=== PATIENT | female | born 1995 | race Caucasian/White ===

== ENCOUNTER 2024-02-25 18:06 | Emergency (ER) | payer MEDICARE, SELFPAY ==
[2024-02-25 18:08] VITALS: BP 114/72
--- NOTE | 2024-02-25 19:26 | ED.GENMED ---
History of Present Illness
General
Chief Complaint: Fatigue
Source: patient
Exam Limitations: none
Time Seen by Provider: 02/25/24 19:11
History of Present Illness
History of Present Illness:
28-year-old female historically healthy except for anemia presents with ongoing severe fatigue for months. She had a very low hemoglobin in the past. Hemoglobin was 5. She was darted on oral iron. Last iron in October was 7. She moved back from
[place] has had difficulty getting into see a physician. Major complaint is ongoing fatigue over the last 2 or 3 nights she has had fevers up to 10 3 at night. She denies cough congestion pleuritic pain abdominal pain urinary symptoms vaginal
symptoms rash etc.
Past History
Past History
ED Past Medical History: Psychiatric (Generalized anxiety disorder)
Social History
Tobacco: Non-smoker
Alcohol: Occasional
Drug: None
Personal: Single
Living: with family (With mother)
Employment: Not employed
Family History
Family History: Other (Noncontributory)
Review of Systems
Review of Systems
All Other Systems: Not applicable
Constitutional: Reports fever and fatigue; Denies weight loss or chills
Respiratory: Reports no symptoms
Cardiac: Reports no symptoms
ABD/GI: Reports no symptoms
: Reports no symptoms
Phy Exam
Physical Exam
Physical Exam:
Physical Exam
General: no apparent distress, not acutely ill. No unusual adenopathy
Neck: supple. no meningeal signs. normal posterior pharynx
Heart: s1/s2 regular rate and rhythm, no murmur. equal radial pulses.
Lungs: no acute respiratory distress. clear bilaterally
Abdomen: normal bowel sounds. not tender. no CVAT
Neuro: alert and oriented. no focal neurological deficits
Skin: no rash
Psychiatric: well kept. interactive and cooperative
Extremities: no edema. no calf tenderness. negative homans. good distal pulses
Course
Orders/Labs/Results
Orders:
Orders
02/25/24 19:19
Test Result ONCE
CXR2 [CR Chest - 2 Views ] Urgent
Comment:
Reason For Exam: Fever/night sweats
02/25/24 19:39
COVID-19 Antigen Urgent
Source: Nasal Swab
Complete Blood Count/With Diff Urgent
Comprehensive Metabolic Panel Urgent
Ferritin Urgent
HCG, Serum Qualitative Screen Urgent
Iron Urgent
TIBC [Total Iron Binding] Urgent
TSH Reflex To Free T4 Urgent
02/25/24 19:40
Urinalysis Reflex To Culture Urgent
Date Specimen was Collected: 02/25/24
Time Specimen was Collected: 19:32
Abnormal Lab Results
02/25/24
19:39
MCH 32.3 H pg
(27.0-31.0)
MPV 10.5 H fL
(7.4-10.4)
02/25/24 19:39
02/25/24 19:39
Vital Signs
Initial and Last Documented VS:
Initial Vital Signs
Temp Pulse Resp BP Pulse Ox
98.4 F 55 16 114/72 100
02/25/24 18:08 02/25/24 18:08 02/25/24 18:08 02/25/24 18:08 02/25/24 18:08
Last Documented Vital Signs
Temp Pulse Resp BP Pulse Ox
98.4 F 55 16 101/65 99
02/25/24 18:08 02/25/24 21:00 02/25/24 18:08 02/25/24 21:00 02/25/24 21:00
MDM/Problems Addressed
Differential Diagnosis Includes:
Patient describing significant fatigue over months with a low hemoglobin. Likely iron deficiency although her menses have been nothing remarkable. She clinically is nontoxic in no distress. She has no unusual adenopathy. Question whether the
fever is part of this complex or whether the fever is a incidental issue. For this reason COVID urine to be checked. Her abdomen is benign. She has no clinical infectious issue found. Workup in progress
*Radiology
Radiology exam reviewed: radiology read reviewed (Negative)
*Pulse Oximetry
Patient hypoxic: no
*Critical Care Note
Total Time (30-74mins, 75-104mins- exclusive of procedures): Not Applicable
Update Note
Update Note:
Workup unremarkable. No serious explanation for patient's sleepiness at times. Benign exam. Entertain sleep apnea as a possibility. Stable for discharge to follow-up
ED Attending Note
-
Portions of this chart may have been created with voice recognition software.� Occasional wrong word or��sound alike� substitutions may have occurred due to the inherent limitations of voice recognition software.
Discharge Plan
Departure
Patient Disposition: Home (Routine Discharge)
Date of Disposition: 02/25/24
Time of Disposition: 22:24
Patient with high blood pressure during this ER visit?: No
Discharge Problem:
Recurring severe fatigue, Recent fever
Instructions: Fatigue (DC)
Prescriptions:
No Action
clonazepam 1 MG tablet
1 mg PO BID
fluoxetine 20 MG capsule
20 mg PO DAILY
rabies vacc,human diploid (PF) [Imovax Rabies Vaccine (PF)] 1 ML recon soln
1 ml IM PER PROTOCOL Qty: 3 0RF
buspirone 5 MG tablet
5 mg PO BID
rabies vacc,human diploid (PF) [Imovax Rabies Vaccine (PF)] 1 ML recon soln
1 ml IM PER PROTOCOL Qty: 1 0RF
Referrals:
[facility] [Outside] - Next open appointment
NONE,* [Family Provider] -
Lucho Hou MD [Active] - Next open appointment
Stand Alone Forms: Back to School
Activity Restrictions/Additional Instructions:
You should follow-up with the primary physician. 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
Also return with persistent fever or any other unusual infectious symptoms
Interventions
Interventions:
*Risk Screen - Suicide Last Done: 02/25/24 18:08
*General Assessment Last Done: 02/25/24 18:08
*Neglect/Abuse Screening Last Done: 02/25/24 18:08
ED- Fall Risk Assessment Last Done: 02/25/24 19:34
*ED COVID-19 Vaccine History Last Done: 02/25/24 18:08
Discharge Date and Time
Print Language: UKRAINIAN
[2024-02-25 19:38] VITALS: BP 120/69
[2024-02-25 19:45] LABS: Urine Albumin Negative (Neg - Trace); Urine Bilirubin Negative (Negative); Urine Character Clear (Clear); Urine Color Yellow; Urine Glucose Negative (Negative); Urine Ketone Negative (Negative); Urine Leukocyte Negative (Negative); Urine Nitrite Negative (Negative); Urine Occult Blood Negative (Negative); Urine Urobilinogen Negative (Neg - 1+)
[2024-02-25 19:46] LABS: % Basophils 0.8 % (0-2); % Eosinophils 0.9 % (0-6); % Immature Granulocytes 0.2 % (0-0.5); % Lymphocytes 33.4 % (20.5-51.1); % Neutrophils 56.7 % (42.2-75.2); Absolute Basophils 0.1 10^3/uL (0-0.2); Absolute Eosinophils 0.1 10^3/uL (0-0.7); Absolute Lymphocytes 2.2 10^3/uL (1.2-3.4); Absolute Monocytes 0.5 10^3/uL (0.1-0.6); Absolute Neutrophils 3.7 10^3/uL (1.4-6.5); Hematocrit 41.1 % (37.0-47.0); Hemoglobin 14.1 g/dL (12.0-16.0); Mean Corp Hgb Conc. 34.3 g/dL (33.0-37.0); Mean Corpuscular Hgb 32.3 pg (27.0-31.0); Mean Corpuscular Volume 94.1 fL (81.0-99.0); Mean Platelet Volume 10.5 fL (7.4-10.4); Nucleated Red Blood Cells % 0 %; Platelet Count 201 10^3/uL (130-400); Red Blood Cell Count 4.37 10^6/uL (4.20-5.40); Red Cell Dist. Width 11.8 % (11.5-14.5); White Blood Cell Count 6.5 10^3/uL (4.8-10.8)
[2024-02-25 20:00] VITALS: BP 95/63
[2024-02-25 20:01] LABS: COVID-19 Antigen Negative (Negative)
[2024-02-25 20:06] LABS: HCG, Serum Qualitative Screen Negative
[2024-02-25 20:12] LABS: ALT (SGPT) 13 U/L (0-35); AST (SGOT) 21 U/L (14-36); Alkaline Phosphatase 49 U/L (38-126); Blood Urea Nitrogen 9 mg/dl (7-17); Calcium 9.3 mg/dl (8.4-10.2); Carbon Dioxide 25 mmol/L (22-30); Chloride 104 mmol/L (98-107); Glucose 88 mg/dl (70-99); Iron 77 ug/dl (37-170); Potassium 4.2 mmol/L (3.5-5.1); Sodium 140 mmol/L (135-145); Total Bilirubin 0.3 mg/dl (0.2-1.3); Total Protein 6.6 g/dl (6.3-8.2); eGFR > 60.00
[2024-02-25 20:21] LABS: Percent Saturation 22 % (20-50); Total Iron Binding Capacity 344 ug/dl (265-497)
[2024-02-25 20:43] LABS: TSH Reflex To Free T4 1.53 uIU/ml (0.47-4.68)
[2024-02-25 20:46] LABS: Ferritin 12.5 ng/ml (6.24-137)
[2024-02-25 21:00] VITALS: BP 101/65
== END 2024-02-25 22:39 | disposition home or self-care (01) ==
LOC: EMR 18:06
PROVIDERS: EMERGENCY PHYSICIAN Emergency Medicine
DX: R53.83 Other fatigue (principal); R50.9 Fever, unspecified; D64.9 Anemia, unspecified
CPT/HCPCS: 99283; 71046; 80053; 81003; 82728; 83540; 83550; 84443; 84703; 85025; 87811

== ENCOUNTER → 2024-05-07 12:53 | Outpatient (REF) | payer OTHER, SELFPAY | LOC: HWRAD 12:53 | PROVIDERS: ATTENDING PHYSICIAN Otolaryngology; FAMILY PHYSICIAN Student in an Organized Health Care Education/Training Program; REFERRING PHYSICIAN Student in an Organized Health Care Education/Training Program | DX: R51.9 Headache, unspecified (principal); G47.33 Obstructive sleep apnea (adult) (pediatric); R06.02 Shortness of breath | CPT/HCPCS: 70486; 71250 ==

== ENCOUNTER 2024-09-15 22:15 | Emergency (ER) | payer SELFPAY ==
[2024-09-15 22:16] VITALS: BP 108/73
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
[2024-09-16 01:13] VITALS: BMI 20.7
[2024-09-16 01:38] VITALS: BP 111/86
== END 2024-09-16 01:39 | disposition home or self-care (01) ==
LOC: EMR 22:15
PROVIDERS: EMERGENCY PHYSICIAN Student in an Organized Health Care Education/Training Program
DX: S16.1XXA Strain of muscle, fascia and tendon at neck level, initial encounter (principal); V47.0XXA Car driver injured in collision with fixed or stationary object in nontraffic accident, initial encounter
CPT/HCPCS: 99285; 70450; 71046; 72125; 73030; 93005

== ENCOUNTER 2025-05-30 12:36 | Emergency (ER) | payer BC, SELFPAY ==
[2025-05-30 12:41] VITALS: BP 102/67
[2025-05-30 13:13] LABS: Hematocrit 39.7 % (37.0-47.0); Hemoglobin 13.6 g/dL (12.0-16.0); Mean Corp Hgb Conc. 34.3 g/dL (33.0-37.0); Mean Corpuscular Volume 91.3 fL (81.0-99.0); Nucleated Red Blood Cells % 0 %; Platelet Count 186 10^3/uL (130-400); Red Cell Dist. Width 11.6 % (11.5-14.5)
[2025-05-30 13:24] LABS: HCG, Serum Qualitative Screen Negative
[2025-05-30 13:26] LABS: ALT (SGPT) 16 U/L (0-35); AST (SGOT) 24 U/L (14-36); Albumin 4.1 g/dl (3.5-5.0); Alkaline Phosphatase 53 U/L (38-126); Blood Urea Nitrogen 12 mg/dl (7-17); Calcium 9.1 mg/dl (8.4-10.2); Carbon Dioxide 26 mmol/L (22-30); Chloride 105 mmol/L (98-107); Glucose 78 mg/dl (70-99); Potassium 4.6 mmol/L (3.5-5.1); Sodium 135 mmol/L (135-145); Total Protein 6.9 g/dl (6.3-8.2); eGFR > 60.00
== END 2025-05-30 15:11 | disposition left against medical advice (07) ==
LOC: EMR 12:36
PROVIDERS: EMERGENCY PHYSICIAN Emergency Medicine
DX: R55 Syncope and collapse (principal); Z53.21 Procedure and treatment not carried out due to patient leaving prior to being seen by health care provider
CPT/HCPCS: 80053; 84703; 85025; 93005